=== PATIENT | female | born 1985 | race Hispanic/Latino ===

== ENCOUNTER 2016-12-22 05:45 | Emergency (ER) | payer OTHER ==
[2016-12-22 06:46] LABS: Urine Drugs of Abuse Note Disclamer
[2016-12-22 06:47] LABS: Basophils % (Auto) 0.6 % (0.0-1.8); Eosinophils % (Auto) 1.2 % (0.0-4.3); Hematocrit 39.1 % (30.3-42.9); Mean Corpuscular HGB Conc 33 % (30-34); Mean Corpuscular Hemoglobin 29 pg (28-32); Mean Corpuscular Volume 87 fl (79-97); Platelet Count 319 K/mm3 (140-440); Red Cell Distribution Width 15.5 % (13.2-15.2); White Blood Count 12.7 K/mm3 (4.5-11.0)
[2016-12-22] MEDS ORDERED: BACITRACIN (ED) OINT PACKET TP ONE (06:49)
--- NOTE | 2016-12-22 06:53 | Emergency Department Report ---
HPI - General Chief Complaint: Psych Time Seen by Provider: 12/22/16 06:41 - HPI HPI: [facility] The patient is a 31-year-old female presenting with a chief complaint of suicidal ideation. Patient states she was "patient is still" her . Patient states she got into an argument and broke her table and then try to use a broken glass to cut her wrists. Patient denies any other attempts recently at harming herself. Patient states she is up-to-date with tetanus certain she received one last year. The patient was brought in by [facility] police with a 1013 stated "advise she was depressed due to loss of her job, weight gain and because she believes her is cheating on her. Also injured herself with a piece of glass use on her wrist resulting in minor abrasions to ' take away the pain.' " Location: Mental state, see above Duration: [see above] Quality: Suicidal Severity: Severe Modifying factors: [see above] Context: [see above] Mode of transportation: [not driving] ED Past Medical Hx - Past Medical History Previous Medical History?: Yes Additional medical history: pcos, childhood schizophrnenia and bipolar. - Surgical History Past Surgical History?: Yes Additional Surgical History: tonsillectomy and adnectomy - Family History Family history: no significant - Social History Smoking Status: Current Every Day Smoker (1/2 pack per day) Substance Use Type: Alcohol, Marijuana - Medications Home Medications: Home Medications Medication Instructions Recorded Confirmed Last Taken Type No Known Home Medications [No 08/31/13 12/22/16 Unknown History Reported Home Medications] ED Review of Systems ROS: Stated complaint: 1013 Other details as noted in HPI Comment: All other systems reviewed and negative Constitutional: denies: chills, fever Eyes: denies: eye pain, eye discharge, vision change ENT: denies: ear pain, throat pain Respiratory: denies: cough, shortness of breath, wheezing Cardiovascular: denies: chest pain, palpitations Endocrine: no symptoms reported Gastrointestinal: denies: abdominal pain, nausea, diarrhea Genitourinary: denies: urgency, dysuria, discharge Musculoskeletal: denies: back pain, joint swelling, arthralgia Skin: other (superficial wrist abrasions) Neurological: denies: headache, weakness, paresthesias Psychiatric: suicidal thoughts Hematological/Lymphatic: denies: easy bleeding, easy bruising Physical Exam - Physical Exam Vital Signs: Vital Signs 12/22/16 06:03 Temperature 98.5 F Pulse Rate 98 H Blood Pressure 126/64 O2 Sat by Pulse 97 Oximetry Physical Exam: GENERAL: The patient is well-developed well-nourished female sitting in chair not appearing to be in acute distress HEENT: Normocephalic. Atraumatic. Extraocular motions are intact. Patient has moist mucous membranes. NECK: Supple. Trachea midline CHEST/LUNGS: Clear to auscultation. There is no respiratory distress noted. HEART/CARDIOVASCULAR: Regular. There is no tachycardia. There is no gallop rub or murmur. ABDOMEN: Abdomen is soft, nontender. Patient has normal bowel sounds. There is no abdominal distention. SKIN: There are superficial linear abrasions to bilateral wrists. No lacerations seen. There is no active bleeding. There is no edema. There is no diaphoresis. NEURO: The patient is awake, alert, and oriented. The patient is cooperative. The patient has normal speech MUSCULOSKELETAL: There is no evidence of acute injury. ED Course Vital Signs 12/22/16 06:03 Temperature 98.5 F Pulse Rate 98 H Blood Pressure 126/64 O2 Sat by Pulse 97 Oximetry ED Medical Decision Making - Lab Data Result diagrams: 12/22/16 06:31 12/22/16 06:31 Laboratory Tests 12/22/16 12/22/16 12/22/16 06:12 06:12 06:31 WBC RBC Hgb Hct MCV MCH MCHC RDW Plt Count Lymph % (Auto) Ness % (Auto) Eos % (Auto) Baso % (Auto) Lymph # Ness # Eos # Baso # Seg Neutrophils % Seg Neutrophils # Sodium 137 Potassium 4.4 Chloride 102.5 Carbon Dioxide 19 L Anion Gap 20 BUN 10 Creatinine 0.6 L Estimated GFR > 60 BUN/Creatinine Ratio 16.66 Glucose 125 H Calcium 8.8 Urine Color Yellow Urine Turbidity Slightly-cloudy Urine pH 5.0 Ur Specific [place] 1.020 Urine Protein <15 mg/dl Urine Glucose (UA) Neg Urine Ketones Tr Urine Blood Mod Urine Nitrite Neg Ur Reducing Substances Not Reportable Urine Bilirubin Neg Urine Ictotest Not Reportable Urine Urobilinogen < 2.0 Ur Leukocyte Esterase Tr Urine WBC (Auto) 3.0 Urine RBC (Auto) 5.0 U Epithel Cells (Auto) 9.0 Urine Bacteria (Auto) 1+ Hyaline Casts 2 Urine Mucus Few Urine HCG, Qual Negative Salicylates Urine Opiates Screen Presumptive negative Urine Methadone Screen Presumptive negative Acetaminophen Ur Barbiturates Screen Presumptive negative Ur Phencyclidine Scrn Presumptive negative Ur Amphetamines Screen Presumptive negative U Benzodiazepines Scrn Presumptive negative Urine Cocaine Screen Presumptive negative U Marijuana (THC) Screen Presumptive negative 12/22/16 12/22/16 12/22/16 06:31 06:31 06:31 WBC 12.7 H RBC 4.50 Hgb 13.0 Hct 39.1 MCV 87 MCH 29 MCHC 33 RDW 15.5 H Plt Count 319 Lymph % (Auto) 32.9 Ness % (Auto) 4.3 Eos % (Auto) 1.2 Baso % (Auto) 0.6 Lymph # 4.2 Ness # 0.5 Eos # 0.1 Baso # 0.1 Seg Neutrophils % 61.0 Seg Neutrophils # 7.7 Sodium Potassium Chloride Carbon Dioxide Anion Gap BUN Creatinine Estimated GFR BUN/Creatinine Ratio Glucose Calcium Urine Color Urine Turbidity Urine pH Ur Specific [place] Urine Protein Urine Glucose (UA) Urine Ketones Urine Blood Urine Nitrite Ur Reducing Substances Urine Bilirubin Urine Ictotest Urine Urobilinogen Ur Leukocyte Esterase Urine WBC (Auto) Urine RBC (Auto) U Epithel Cells (Auto) Urine Bacteria (Auto) Hyaline Casts Urine Mucus Urine HCG, Qual Salicylates < 0.3 L Urine Opiates Screen Urine Methadone Screen Acetaminophen < 15.0 Ur Barbiturates Screen Ur Phencyclidine Scrn Ur Amphetamines Screen U Benzodiazepines Scrn Urine Cocaine Screen U Marijuana (THC) Screen - Differential Diagnosis suicidal ideation, wrist abrasions Critical care attestation.: If time is entered above; I have spent that time in minutes in the direct care of this critically ill patient, excluding procedure time. ED Disposition Clinical Impression: Suicidal ideation, Abrasion of wrist Disposition: DC/TX PSY HOSP/PSY UNIT Is pt being admited?: No Does the pt Need Aspirin: No Condition: Fair Referrals: PRIMARY CARE, [Primary Care Provider] - 3-5 Days Time of Disposition: 07:23 (awaiting acceptance)
[2016-12-22 06:57] LABS: Anion Gap 20 mmol/L; BUN/Creatinine Ratio 16.66; Blood Urea Nitrogen 10 mg/dL (7-17); Calcium 8.8 mg/dL (8.4-10.2); Carbon Dioxide 19 mmol/L (22-30); Chloride 102.5 mmol/L (98-107); Glucose 125 mg/dL (65-100); Potassium 4.4 mmol/L (3.6-5.0); Sodium 137 mmol/L (137-145)
[2016-12-22 07:04] LABS: Bacteria,Urine 1+ /HPF (Negative); Bilirubin,Urine NEG (Negative); Blood,Urine MOD (Negative); Ketones,Urine TR mg/dL (Negative); Leukocyte Esterase,Urine TR (Negative); Mucus,Urine FEW /HPF; Nitrite,Urine NEG (Negative); Protein,Urine <15 mg/dL mg/dL (Negative); Urobilinogen,Urine < 2.0 mg/dL (<2.0)
--- NOTE | 2016-12-22 15:47 | Consultation ---
History of Present Illness - Reason for Consult Reason for consult: psych consult - Chief Complaint Chief complaint: CC: "everything going bad for me" 31 year old WF presents to [facility] after cutting self with a piece of glass. Patient notes that she's been having difficulty dealing with several stressors including job loss, weight gain, and relationship issues. Reluctantly , she commented on feeling her is cheating on her- stating that it was the alcohol talking. This culminated on her binge drinking yesterday with 16 beers and subsequently "lashing" out by breaking a table in the house. She notes that she picked up a piece of glass and proceed to cut her forearm superficially with the glass (no stitches). Next thing she knows police where at her door to take her to the ER. Patient feels that a neighbor likely called them. Currently patient is upset being in the hospital- noting that she's not depressed nor suicidal. She denies issues with focus and sleep. She denies any euphoria or psychosis. She denies having a drinking problem and admits things do get tough and it got out of hand this time. She is insisting to go home. "This was stupid." Medications and Allergies Allergies Allergy/AdvReac Type Severity Reaction Status Date / Time No Known Allergies Allergy Verified 12/22/16 06:50 Home Medications Medication Instructions Recorded Confirmed Last Taken Type No Known Home Medications [No 08/31/13 12/22/16 Unknown History Reported Home Medications] Past psychiatric history - Past Medical History Past Medical History: other (PCOS) - past Psychiatric treatment and history psychiatric treatment history: inpt: none- later patient noted whats listed below- dx may have been bipolar but her story suggest more of an axis II issue outpt: none no suicide attempt- patient notes going to a hospital at age [age] after suicidal ideation to get attention but insists that there was no attempt no family history substance: denies any substance use other than THC Oct 03 and minimizes its use. also notes that she drinks socially on weekends, no DUI, no legal issues, no rehab Mental Status Exam - Vital signs Last Vital Signs Temp 98.9 F 12/22/16 07:59 Pulse 16 L 12/22/16 07:59 Resp 16 12/22/16 08:01 BP 104/64 12/22/16 07:59 Pulse Ox 97 12/22/16 08:01 - Exam Orientation: time, place, person Affect: normal Mood: anxious Thought Process: Intact Perceptions: none Speech: normal rate and pattern Concentration: focused Motor activity: normal Level of consciousness: alert Memory: Intact Interaction: defensive Mini mental status exam(if necessary): 24-30 Results Result Diagrams: 12/22/16 06:31 12/22/16 06:31 Abnormal lab results 12/22/16 12/22/16 12/22/16 Range/Units 06:31 06:31 06:31 WBC 12.7 H (4.5-11.0) K/mm3 RDW 15.5 H (13.2-15.2) % Carbon Dioxide 19 L (22-30) mmol/L Creatinine 0.6 L (0.7-1.2) mg/dL Glucose 125 H (65-100) mg/dL Salicylates (2.8-20.0) mg/dL Plasma/Serum Alcohol 0.11 H (0-0.07) gm% 12/22/16 Range/Units 06:31 WBC (4.5-11.0) K/mm3 RDW (13.2-15.2) % Carbon Dioxide (22-30) mmol/L Creatinine (0.7-1.2) mg/dL Glucose (65-100) mg/dL Salicylates < 0.3 L (2.8-20.0) mg/dL Plasma/Serum Alcohol (0-0.07) gm% All other labs normal. Assessment and Plan Assessment and plan: 31 year old WF presents to [facility] after cutting self with a piece of glass. Patient admits that she was drinking at the time and it was an impulsive event. She agrees that she has coping issues and multiple stressors but insists that she is not at risk of harm to self or others. depression/cutting self- much of her actions seem impulsive and a product of poor coping with stressors, acting out behaviors, and being intoxicated. Her history of bipolar disorder is more likely borderline behaviors and an axis II disorder. However more information and collateral is required prior to a proper diagnosis. Her coping was problematic and patient did place herself in danger of harm- therefore the rec at this time is inpatient treatment. Use prozac 20 mg po daily for her mood.
[2016-12-23 01:18] VITALS: BP 133/97
[2016-12-23] MEDS ORDERED: PROzac PO SCH (10:00)
--- NOTE | 2016-12-23 11:58 | Emergency Department Report ---
Blank Doc - Documentation Documentation: Vital Signs - 24 hr 12/22/16 12/23/16 22:00 08:35 Temperature 98.5 F Pulse Rate 97 H Respiratory 18 16 Rate Blood Pressure 133/97 [Left] O2 Sat by Pulse 98 97 Oximetry Vital signs reviewed. No events reported. Awaiting placement
--- NOTE | 2016-12-23 12:43 | Progress Note ---
<TALHA MEEKS - Last Filed: 12/23/16 13:16> Subjective - Reason for Consult Consult date: 12/23/16 Reason for consult: Psychiatry Follow-up - Chief Complaint Chief complaint: 'I should have done this" 31 year old YANDY presents to [facility] after cutting self with a piece of glass. Today patient became very emotional telling the story of what happened that caused her to be transported to [facility]. Patients stated that she need to make better decisions and cutting herself was not a good thing. She wants to go home and adamant that she loves her . The 16 beers she drunk was indicated to "End her day, not her life." She denies having a drinking problem. She stated she cut her wrists to "lash out" at her stressors (unemployed and relationship issues). On assessment patient has superficial wounds bilateral to both wrist. She denies SI/HI's or AVH's at this time. She denies any side effects to the Prozac currently. Mental Status Exam - Vital signs Last Vital Signs Temp 98.5 F 12/22/16 22:00 Pulse 97 H 12/22/16 22:00 Resp 16 12/23/16 08:35 BP 133/97 12/22/16 22:00 Pulse Ox 97 12/23/16 08:35 - Exam Orientation: time, place, person Affect: flat Mood: other (Emotional) Thought content: other (None) Thought Process: Intact Perceptions: none Speech: normal rate and pattern Concentration: other (intact) Motor activity: other (Lying in bed) Level of consciousness: alert Memory: Intact Sleep Symptoms: Restless Interaction: cooperative Assessment and Plan Impression: 31 year old YANDY presents to [facility] after cutting self with a piece of glass. Patient was impulsive and dealing with multiple stressors (unemployment and relationship issues). Patient drunk 16 beers within 2 hours before police arrived. Serum Alcohol 0.11.. Recommendation/Plan: Continue 1013 with possible inpatient psy services. Continue the Prozac 20 mg PO daily. Black Box warning discussed with patient reference Suicidality/Medication induced bob. Discussed generalized coping skills will patient. ED Disposition Disposition: DISCHARGED TO HOME OR SELFCARE Condition: Fair Additional Instructions: Follow with resources given. Return if you are having any difficulties or concerns. Referrals: PRIMARY CARE, [Primary Care Provider] - 3-5 Days <YE GONZALEZ - Last Filed: 12/23/16 18:23> Mental Status Exam - Vital signs Last Vital Signs Temp 98.5 F 12/22/16 22:00 Pulse 97 H 12/22/16 22:00 Resp 16 12/23/16 08:35 BP 133/97 12/22/16 22:00 Pulse Ox 97 12/23/16 08:35 ED Disposition Is pt being admited?: No Does the pt Need Aspirin: No Time of Disposition: 18:22 ED Course Vital Signs 12/22/16 12/22/16 12/22/16 06:03 07:59 08:01 Temperature 98.5 F 98.9 F Pulse Rate 98 H 16 L Respiratory 16 16 Rate Blood Pressure 126/64 Blood Pressure 104/64 [Left] O2 Sat by Pulse 97 97 97 Oximetry 12/22/16 12/22/16 12/23/16 10:00 22:00 08:35 Temperature 98.9 F 98.5 F Pulse Rate 104 H 97 H Respiratory 16 18 16 Rate Blood Pressure Blood Pressure 104/64 133/97 [Left] O2 Sat by Pulse 97 98 97 Oximetry - Reevaluation(s) Reevaluation #1: 12/23/16 18:23 Patient was interviewed by psychiatrist. Patient is no longer suicidal. 1013 was rescinded. It is view of 0 psychiatrist that the patient could be safely discharged home at this time. She does sign a safety contract. She also was given resources in the community for follow-up. Her questions are answered. She is very calm at this time as well. I feel she is appropriate for home.
--- NOTE | 2016-12-23 19:16 | Event Note ---
Date: 12/23/16 Impression: Patient was calm and cooperative during assessment. She denies SI/HI 's or AVH's. She is no longer a threat to self or anyone else. Recommendation/Plan: 1013 rescinded. Patient was given outpatient information for mental health services. Safety contract completed with patient.
== END 2016-12-23 18:35 | disposition home or self-care (01) ==
LOC: EEVIPCON 05:45 → ED 05:45
DX: R45.851 Suicidal ideations (principal); S60.812A Abrasion of left wrist, initial encounter; S60.811A Abrasion of right wrist, initial encounter; F17.200 Nicotine dependence, unspecified, uncomplicated; F12.10 Cannabis abuse, uncomplicated; F20.9 Schizophrenia, unspecified; F41.9 Anxiety disorder, unspecified; X78.0XXA Intentional self-harm by sharp glass, initial encounter; Y93.89 Activity, other specified; Y92.89 Other specified places as the place of occurrence of the external cause; Y99.8 Other external cause status
CPT/HCPCS: 36415; 80048; 80307; 81001; 81025; 85025; 99284; G0480; 80320

== ENCOUNTER 2019-08-31 07:17 | Day surgery (SDC) | payer OTHER ==
--- NOTE | 2019-08-31 08:20 | Short Stay Summary ---
Short Stay Documentation Date of service: 08/31/19 Narrative H&P: Pt is a 34yo WF LMP 08/11/19 presents for surgical removal of a cervical/endometrial polyp. Pelvic u/s showed a normal uterus 8 x 7 x 5cm with a cervical polyp within the cervical canal. Normal ovaries bilaterally. - History Principal diagnosis: Endocervical polyp H&P: obtained from office Past Medical History: other (Habitual aborter) Past Surgical History: No surgical history Social history: no significant social history, - Allergies and Medications Current Medications: Allergies No Known Allergies Allergy (Verified 12/22/16 06:50) Home Medications Medication Instructions Recorded Confirmed Last Taken Type No Known Home Medications [No 08/31/13 12/22/16 Unknown History Reported Home Medications] Active Medications Cefazolin Sodium (Ancef/Sterile Water 2 Gm/20 Ml) 2 gm in 20 mls @ 80 mls/hr IV PREOP NR; Protocol - Physical exam General appearance: no acute distress Integumentary: no rash HEENT: Atraumatic Lungs: Clear to auscultation Breasts: deferred Heart: Regular rate Gastrointestinal: normal Female Genitourinary: deferred Rectal Exam: deferred Extremities: no ischemia, No edema Neurological: Normal gait, Normal speech - Brief post op/procedure progress note Date of procedure: 08/31/19 Pre-op diagnosis: Cervical/Endometrial polyps Post-op diagnosis: same Procedure: Hysteroscopy with Polypectomy using Myosure Anesthesia: GETA Findings: A normal uterus with multiple endometrial polyps Surgeon: REJI ARANDA Estimated blood loss: 50-100ml Pathology: list (endometrial curretings) Specimen disposition: to lab Condition: stable - Hospital course Hospital course: Unremarkable. - Disposition Condition at discharge: Good Disposition: DC-01 TO HOME OR SELFCARE - Discharge Diagnoses (1) Habitual aborter Status: Chronic (2) Endometrial polyp Status: Resolved Short Stay Discharge Plan Activity: no restrictions Diet: regular Follow up with: REJI ARANDA MD [Staff Physician] - 14 Days MISAEL LEYVA [Primary Care Provider] - 14 Days Prescriptions: HYDROcodone/APAP 5-325 [[place] 5/325] 1 each PO Q6HR PRN #20 tablet PRN Reason: Pain
--- NOTE | 2019-08-31 08:25 | Anesthesia Day of Surgery ---
Anesthesia Day of Surgery - Day of Surgery Patient Examined: Yes Patient H&P Reviewed: Yes Patient is NPO: Yes
--- NOTE | 2019-08-31 08:27 | Anesthesia Consultation ---
Anesthesia Consult and Med Hx Date of service: 08/31/19 - Airway Anesthetic Teeth Evaluation: Chipped ROM Head & Neck: Adequate Mental/Hyoid Distance: Adequate Mallampati Class: Class II Intubation Access Assessment: Probably Good - Pre-Operative Health Status ASA Pre-Surgery Classification: ASA3 Proposed Anesthetic Plan: General - Pulmonary Hx Smoking: Yes Hx Sleep Apnea: Yes (Probable-will be tested) - Gastrointestinal Hx Gastroesophageal Reflux Disease: Yes (Occasional)
[2019-08-31] MEDS ORDERED: ONDANSETRON 4 MG/2 ML INJ IV PRN (08:28)
[2019-08-31 08:32] LABS: Hematocrit 35.3 % (30.3-42.9); Hemoglobin 11.8 gm/dl (10.1-14.3)
[2019-08-31] MEDS ORDERED: MIDAZOLAM 2 MG/2 ML INJ IV NR (09:00)
[2019-08-31] MEDS ORDERED: LACTATED RINGERS 1,000 ML IV SCH (09:00)
[2019-08-31] MEDS ORDERED: ceFAZolin/Water 2 GM/20 ML 2 GM/20 ML SYRINGE IV NR (09:00)
[2019-08-31] MEDS ORDERED: SILVER NITRATE APPLICATOR 1 EA TP ONE (10:17)
[2019-08-31] MEDS ORDERED: HYDROmorphone 1 MG/1 ML INJ ONE (10:33)
[2019-08-31] MEDS ORDERED: ROCURONIUM 50 MG/5 ML INJ IV ONE (10:34)
[2019-08-31] MEDS ORDERED: LIDOCAINE MPF (2%) 20 MG/1 ML VIAL 5 ML ONE (10:34)
[2019-08-31] MEDS ORDERED: PROPOFOL 200 MG/20 ML VIAL IV ONE ×2 (10:34→10:55)
[2019-08-31] MEDS ORDERED: ONDANSETRON 4 MG/2 ML INJ ONE (11:29)
[2019-08-31] MEDS ORDERED: dexAMETHasone 20 MG/5 ML VIAL ONE (11:29)
[2019-08-31] MEDS ORDERED: KETOROLAC 30 MG/1 ML INJ ONE (11:30)
[2019-08-31] MEDS ORDERED: SODIUM CHLORIDE 0.9% IRRIG SOLN 3000 ML IR ONE (11:42)
[2019-08-31] MEDS: fentaNYL 100 MCG/2 ML INJ IV PRN ×2 (12:00→12:11)
[2019-08-31 12:22] VITALS: BP 128/85
[2019-08-31] MEDS ORDERED: HYDROcodone/ACETAMINOPHEN 5-325 MG TAB PO PRN (12:24)
--- NOTE | 2019-08-31 17:51 | Post Anesthesia Evaluation ---
- Post Anesthesia Evaluation Patient Participated: Yes Airway Patent: Yes Stable Respiratory Function: Yes Nausea/Vomiting: No Temp > 96.8F: Yes Pain Manageable: Yes Adequeate Hydration: Yes Anesthesia Complications: No Block Receding Appropriately: Not Applicable Patient on Ventilator: No
--- NOTE | 2019-09-01 14:47 | Operative Report ---
Operative Report Operative Report: Date of procedure: 08/31/2019 Pre-operative diagnosis: 1. Cervical/Endometrial polyps Post-operative diagnosis: Same Procedure name(s): 1. Hysteroscopy 2. Polypectomy using Myosure device Surgeon: Chong May MD Cable Mock Up Assembler: None Anesthesia: GET EBL: Minimal Findings: A normal sized uterus with multiple endometrial polyps. Procedure: After the patient was correctly identified, she was prepped and draped in the usual sterile fashion and placed in the dorsolithotomy position. First the bladder was emptied using a straight catheter, and the speculum was placed in the vaginal vault and the anterior lip of the cervix was grasped using a single-tooth tenaculum. The cervical os was sequentially dilated, and the hysteroscope was introduced into the cervical canal. Visualization of endometrial cavity found multiple endometrial polyps. The Myosure device was introduced into the endometrial cavity and all the endometrial polyps were removed and sent to pathology. At this time the procedure was considered complete. All instruments removed from the uterine cavity. The patient tolerated the procedure well and was transported to recovery in stable condition.
== END 2019-08-31 13:10 | disposition home or self-care (01) ==
LOC: OR 07:17
PROVIDERS: ATTEND Obstetrics & Gynecology
DX: N84.0 Polyp of corpus uteri (principal); F17.210 Nicotine dependence, cigarettes, uncomplicated; G47.30 Sleep apnea, unspecified; K21.9 Gastro-esophageal reflux disease without esophagitis; Z98.890 Other specified postprocedural states; Z79.899 Other long term (current) drug therapy
CPT/HCPCS: 36415; 58558; 81025; 85014; 85018; 88305; A4217; J0690; J1100; J1170; J1885; J2250; J2405; J2704; J3010; J7120